=== PATIENT | male | born 1950 | race Asian ===

== ENCOUNTER 2022-05-27 01:16 | Emergency (ER) | payer MEDICARE, OTHER ==
[~2022-05-27] VITALS: Ht 160 cm; Wt 61.7 kg
--- NOTE | 2022-05-27 01:45 | NUR ---
[id number] C/O L EYEBROW LACERATION. TRIP AND FELL IN BATHROOM. DENIES KO. NO BLOOD THINNER USE. TETANUS UP TO DATE. PT AAO X 4, VS STABLE. PT AWAITING TO BE SEEN BY MD. ATTACHED TO MONITOR AND PULSE OX. KEPT COMFORTABLE.
--- NOTE | 2022-05-27 02:06 | NUR ---
PT TAKEN FOR CT
--- NOTE | 2022-05-27 02:07 | NUR ---
[facility] in [facility] - 05/27/22 at 0208 by GISSELL PT WISHES TO BE FULL [employer] HELPED WITH TRANSLATION.
[2022-05-27] MEDS ORDERED: LIDOCAINE HCL/MPF 1% 30 ML VIAL IJ ONE (02:47)
[2022-05-27] MEDS ORDERED: TDAP [DIPH/PERTUSSIS/TET] 0.5 ML VIAL IM ONE ×2 (03:30→03:38)
--- NOTE | 2022-05-27 03:43 | NUR ---
Patient discharged to home in stable condition. Written and verbal after care instructions given. Patient verbalizes understanding of instruction. Pt ambulatory with a steady gait
[2022-05-27 03:45] VITALS: BP 134/91
== END 2022-05-27 03:45 | disposition home or self-care (01) ==
LOC: ER 01:19
DX: S01.112A Laceration without foreign body of left eyelid and periocular area, initial encounter (principal); R51.9 Headache, unspecified; W01.0XXA Fall on same level from slipping, tripping and stumbling without subsequent striking against object, initial encounter; Y93.89 Activity, other specified; Y92.89 Other specified places as the place of occurrence of the external cause; Y99.8 Other external cause status
CPT/HCPCS: 99284; 70450; 12013; 90471; 90715; J3490

== ENCOUNTER 2022-06-03 09:23 | Emergency (ER) | payer MEDICARE, OTHER ==
[~2022-06-03] VITALS: Ht 162.6 cm; Wt 59.0 kg
[2022-06-03 09:36] VITALS: BP 127/83
--- NOTE | 2022-06-03 09:36 | NUR ---
BIBS FOR SUTURE REMOVAL, WAS SEEN 05/27. PT DENIES ANY PAIN AT THIS TIME.
--- NOTE | 2022-06-03 09:36 | NUR ---
[facility] in [facility] - 06/03/22 at 1001 by KERWIN BIBS FOR SUTRURE REMOVAL, WAS SEEN 05/27. PT DENIES ANY PAIN AT THIS TIME.
--- NOTE | 2022-06-03 10:14 | NUR ---
Patient discharged to home in stable condition. Written and verbal after care instructions given. Patient verbalizes understanding of instruction.
== END 2022-06-03 10:14 | disposition home or self-care (01) ==
LOC: ER 09:26
DX: Z48.02 Encounter for removal of sutures (principal); S01.112D Laceration without foreign body of left eyelid and periocular area, subsequent encounter; X58.XXXD Exposure to other specified factors, subsequent encounter